=== PATIENT | male | born 1965 ===

== ENCOUNTER 2019-02-03 06:47 | Day surgery (SDC) | payer BC ==
[2019-02-03 07:36] VITALS: BMI 29.2
--- NOTE | 2019-02-03 07:36 | RAD ---
Date of service: 02/03/2019 HISTORY: CXR DONE IN [facility].... COMPARISON: Chest radiographs 10/23/2016. TECHNIQUE: Chest PA and lateral views FINDINGS: LUNGS: No active pulmonary disease. PLEURA: No significant pleural effusion identified. No pneumothorax apparent. CARDIOVASCULAR: No aortic atherosclerotic calcification present. Normal cardiac size. No pulmonary vascular congestion. OSSEOUS STRUCTURES: No significant abnormalities. VISUALIZED UPPER ABDOMEN: Normal. OTHER FINDINGS: None. IMPRESSION: No interval acute cardiopulmonary disease appreciated.
[2019-02-03 07:38] LABS: BASO # 0.1 K/uL (0.0-0.2); BASO % 0.6 % (0.0-2.0); EOS # 0.5 K/uL (0.0-0.7); EOS % 4.7 % (0.0-4.0); HEMOGLOBIN 14.1 g/dL (12.0-18.0); LYMPH # 3.3 K/uL (1.0-4.3); LYMPH % 32.4 % (20.0-40.0); MEAN CELL VOLUME 91.4 fL (80.0-94.0); MEAN CORPUSCULAR HEMOGLOBIN 31.8 pg (27.0-31.0); MEAN CORPUSCULAR HGB CONC 34.8 g/dL (33.0-37.0); MEAN PLATELET VOLUME 7.7 fL (7.2-11.7); MONO # 0.7 K/uL (0.0-0.8); MONO % 6.9 % (0.0-10.0); NEUT # 5.6 K/uL (1.8-7.0); NEUT % 55.4 % (50.0-75.0); NRBC % 0.1 % (0.0-2.0); RBC 4.43 Mil/uL (4.40-5.90); RED CELL DISTRIBUTION WIDTH 13.3 % (11.5-14.5); WHITE BLOOD COUNT 10.1 K/uL (4.8-10.8)
[2019-02-03 07:44] LABS: INR 1.1; PROTHROMBIN TIME 11.5 SECONDS (9.7-12.2)
[2019-02-03 07:54] LABS: BLOOD UREA NITROGEN 13 mg/dL (9-20); GFR NON-AFRICAN AMERICAN > 60
[2019-02-03] MEDS ORDERED: Bupivacaine 0.25% 20 ML INJ IJ ONE (09:09)
[2019-02-03] MEDS ORDERED: ceFAZolin 1 gm in NS 2 GM/200 ML BAG IVPB ONE (09:09)
[2019-02-03] MEDS ORDERED: Lidocaine/Epinephrine 1% 1:100000 10 ML IJ ONE (09:09)
[2019-02-03] MEDS ORDERED: Midazolam 2 MG/2 ML VIAL ONE (09:15)
[2019-02-03] MEDS ORDERED: Propofol 10 mg/ml Inj (20 ML) ONE ×2 (09:18→09:31)
--- NOTE | 2019-02-03 09:41 | PCM.SURG1 ---
Surgeon's Initial Post Op Note - Surgeon's Notes Surgeon: Dr. Domínguez Painter Airbrush: Carl PGY2 Type of Anesthesia: General IV, Local Anesthesia Administered By: Dr. Ag Pre-Operative Diagnosis: Perineal abscess Operative Findings: Perineal abscess Post-Operative Diagnosis: Perineal abscess Operation Performed: Incision and drainage of Perineal abscess Specimen/Specimens Removed: wound culture x 2 Estimated Blood Loss: EBL {In ML}: 10 Blood Products Given: N/A Drains Used: No Drains Post-Op Condition: Good Date of Surgery/Procedure: 02/03/19 Time of Surgery/Procedure: 09:41
[2019-02-03] MEDS ORDERED: Oxycodone/Acetaminophen 5/325 mg Tab PO PRN (09:42)
[2019-02-03] MEDS ORDERED: HYDROmorphone 0.5 mg/0.5 ml ISec IVP PRN (09:42)
[2019-02-03] MEDS: (Novolin R) Insulin Human Regular 100 units/ml vial IVP ONE ×2 (09:45→10:12)
[2019-02-03] MEDS ORDERED: Piperacill/Tazo 4.5gm in Dex 4.5 GM/100 ML BAG IVPB STA (10:13)
[2019-02-03 11:12] VITALS: O2SAT 96
[2019-02-03] MEDS ORDERED: (Novolin R) Insulin Human Regular 100 units/ml vial SC ONE (11:33)
[2019-02-03] MEDS ORDERED: (Novolin R) Insulin Human Regular 100 units/ml vial IVP ONE (11:45)
[2019-02-03 12:07] VITALS: RESP 18; TEMP 97.7
[2019-02-03 12:56] VITALS: BP 130/74; PULSE 73
--- NOTE | 2019-02-03 14:46 | OP ---
PROCEDURE DATE: 02/03/2019 PREOPERATIVE DIAGNOSES: 1. Perineal abscess. 2. Uncontrolled diabetes. POSTOPERATIVE DIAGNOSES: 1. Perineal abscess. 2. Uncontrolled diabetes. PROCEDURES PERFORMED: 1. Incision and drainage of perineal abscess. 2. Debridement of perineal wound. SURGEON: Felix Domínguez MD MERCHANDISING LEAD: Codey Henry DO, PGY-2 Resident ANESTHESIA: Sedation with local. ESTIMATED BLOOD LOSS: Around 10 mL. DRAIN: None. PATHOLOGY: The pus was sent for culture and sensitivity. COMPLICATIONS: None. INTRAOPERATIVE FINDINGS: The patient had a large, approximately 4 x 3 cm perineal abscess on the left side of the perineum and there was necrotic tissue in the wall of the abscess. On intraoperative steps, this is 53-year-old male who had multiple previous perineal as well as the gluteal abscesses and who was recently diagnosed with uncontrolled diabetes and the patient had a perineal abscess. The patient was consented for the incision and drainage of perineal abscess, brought to the OR, placed supine on operating table. After induction of anesthesia, the patient was placed in lithotomy position. Stirrups used and the perineal area was prepped and draped in the usual sterile fashion. The local anesthesia was injected and the transverse incision was made on the left side of the perineum to enter the abscess cavity and it was superficial and deep up to the skin and subcutaneous tissue. The abscess cavity was drained and the wound was debrided with blunt and sharp dissection. Hemostasis was achieved. The wound was irrigated. The wound was packed with Iodoform packing. Dry sterile dressing was applied. The patient tolerated the procedure well. Count of instrument and gauze was correct. There were no apparent complications. Felix Domínguez MD
--- NOTE | 2019-02-05 00:06 | CARD ---
APPROVED REPORT Date of service: 02/03/2019 EKG Measurement Heart [id number] <Conclusion> Normal sinus rhythm Possible Left atrial enlargement Borderline ECG
== END 2019-02-03 12:40 | disposition home or self-care (01) ==
LOC: C.SDS 06:47
PROVIDERS: ATTEND Surgery Surgical Critical Care
DX: L02.215 Cutaneous abscess of perineum (principal); E11.65 Type 2 diabetes mellitus with hyperglycemia
CPT/HCPCS: 10060; 36415; 71046; 80048; 82948; 85025; 85610; 85730; 87070; J0690; J1170; J2250; J2405; J2704; J3010